=== PATIENT | male | born 2000 | race Caucasian/White ===

== ENCOUNTER 2024-05-02 14:31 | Emergency (ER) | payer OTHER, SELFPAY ==
[2024-05-02 14:48] VITALS: BP 124/80; PULSE 99; RESP 20; TEMP 36.7; O2SAT 99
--- NOTE | 2024-05-02 17:47 | ED.UPPEXIN ---
HPI - Extremity Injury (Upper) General Chief Complaint: Extremity Injury, Upper Stated Complaint: HAND INJURY Time Seen by Provider: 05/02/24 17:43 Source: patient, family (father), RN notes reviewed and other (spoke with provider) Mode of arrival: ambulatory Limitations: no limitations History of Present Illness HPI narrative: [id number] male presents with swelling and pain in his 2nd digit of his right hand. Patient had sustained a laceration to the base of his 5th digit on this hand and on the same day had slammed his hand between 2 hard objects. Patient works as a [employer] operator. He had initially presented to urgent care and had a negative x-ray. Patient has continued to have pain and swelling which has alternated on the digits but has seemed to settle into the 2nd digit over the past day or so. His last dose of ibuprofen 800 mg was at 6:30 a.m. this morning. He cannot recall his last tetanus shot in believes it is probably been greater than 10 years. It was not updated at the Urgent Care this morning where Xray was again performed and reported as negative though no images in EMR and patient does not have documentation with him. Spoke with ROMEO at prior to patient's arrival for provider report. She expressed strong concern for flexor tenosynovitis. Related Data Allergies Allergy/AdvReac Type Severity Reaction Status Date / Time No Known Allergies Allergy Unknown Verified 05/02/24 14:48 [facility] Past Medical History Medical History Right hand dominant Social History Social History Occupation/Education: occupation Additional occupation/education comments: Employed as a [employer] operator since approximately 2019 Exam Narrative: GENERAL: Well-appearing, well-nourished, and in no acute distress. HEAD: Normocephalic, atraumatic. EYES: Non injected, non icteric ENT: Nares clear, no rhinorrhea or epistaxis. NECK: Supple. CHEST: Speaking in full sentences. No respiratory distress. HEART: Regular rate and rhythm. ABDOMEN: Soft, nondistended. EXTREMITIES: Limited ROM (can not perform full flexion) of 2nd digit R hand. Edema, fusiform appearance of digit. Also erythema and edema along dorsum of hand and overlying 2nd knuckle. No pain with passive extension of the digit but patient does experience pain with active extension of the digit. No pain to percussion along the flexor surface. SKIN: Warm, dry, no rash. NEURO: No focal deficits. Alert and oriented x3. PSYCH: Normal mood and affect. Course Vital Signs Vital signs: Vital Signs Temperature 98.0 F 05/02/24 14:48 Pulse Rate 99 05/02/24 14:48 Respiratory Rate 20 05/02/24 14:48 Blood Pressure 124/80 05/02/24 14:48 Pulse Oximetry 99 05/02/24 14:48 Oxygen Delivery Room Air 05/02/24 14:48 Temperature 98.2 F 05/02/24 19:58 Pulse Rate 80 05/02/24 19:58 Respiratory Rate 18 05/02/24 19:58 Blood Pressure 130/62 05/02/24 19:58 Pulse Oximetry 99 05/02/24 19:58 Oxygen Delivery Room Air 05/02/24 14:48 MDM - Extremity Injury (Upper) MDM Narrative Medical decision making narrative: Patient presents from with concern for flexor tenosynovitis. In the emergency department they are afebrile with vital signs within normal limits. Kan[place] signs for flexor sheath infection (flexor tenosynovitis) Finger held in slight flexion: Yes Fusiform swelling of affected digit: Yes Tenderness along flexor tendon sheath: No, more so along extensor mechanism. Pain with passive extension of digit: No (only with active extension) Thus, equivocal for FTS and swelling/erythema is primarly along extensor surface and into dorsum of hand which appears cellulitic. BEDSIDE POINT OF CARE ULTRASOUND PROCEDURE POCUS is performed which does demonstrate some edema/cobblestoning along extensor surface with scant fluid collection but no abilio
[2024-05-02] MEDS: TETANUS,DIPHTHERIA,AC PERTUSSIS ADULT (0.5 ML) BOOSTRIX IM (18:05)
[2024-05-02 18:19] LABS: Basophils Percent Auto 0.3 % (0.2-1.2); Eosinophils Absolute Auto 0.1 K/mm3 (0-0.3); Eosinophils Percent Auto 0.7 % (0-4.4); Hematocrit 44.1 % (42.0-52.0); Hemoglobin 15.1 g/dL (14.0-18.0); Immature Granulocyte Absolute 0.04 K/mm3 (0.00-0.031); Immature Granulocyte Percent A 0.4 % (0-0.5); Lymphocytes Absolute Auto 1.81 K/mm3 (0.9-3.2); Lymphocytes Percent Auto 18.4 % (18.3-44.2); Mean Corpuscular HGB Conc 34.2 g/dl (32-36); Mean Corpuscular Hemoglobin 30.4 pg (26-34); Mean Corpuscular Volume 88.9 fl (80-100); Mean Platelet Volume 9.5 fl (7.4-10.4); Monocytes Percent Auto 10.4 % (2.6-8.5); Neutrophils Absolute Auto 6.9 K/mm3 (1.3-6.7); Neutrophils Percent Auto 69.8 % (45.5-73.1); Platelet Count Result 362 k/mm3 (150-375); Red Blood Count 4.96 M/mm3 (4.6-6.20); Red Cell Distribution Width 12.1 % (11.5-14.5); White Blood Count 9.8 K/mm3 (4.5-10.0)
[2024-05-02] MEDS: HYDROcodone/acetaminophen (*CRX) 5-325 MG TABLET 1 TAB PO (18:26)
[2024-05-02 18:29] LABS: Alanine Aminotransferase 39 U/L (6-50); Albumin Level 4.7 g/dL (3.5-5.1); Alkaline Phosphatase 137 U/L (38-126); Anion Gap 14 mmol/L (4-12); Aspartate Amino Transferase 32 U/L (17-59); Bilirubin,Total 0.8 mg/dL (0.2-1.3); Blood Urea Nitrogen 12 mg/dL (9-20); Calcium 9.5 mg/dL (8.4-10.2); Carbon Dioxide 23 mmol/L (22-30); Chloride 102 mmol/L (98-107); Estimated CRCL calculation 158 ml/min; Estimated Glomerular Filt Rate > 60; Glucose 88 mg/dL (65-110); Potassium 3.8 mmol/L (3.4-5.0); Sodium 139 mmol/L (137-145)
[2024-05-02 19:11] LABS: Erythrocyte Sedimentation Rate 17 mm/hr (0-20)
[2024-05-02 19:12] LABS: CRP 1.4 mg/dL (<1.0)
[2024-05-02] MEDS: SULFAMETHOXAZOLE/TRIMETHOPRIM 800/160 MG DS TABLET 1 TAB PO (19:55)
[2024-05-02] MEDS: CEPHALEXIN 500 MG CAPSULE PO (19:55)
[2024-05-02 19:58] VITALS: BP 130/62; PULSE 80; RESP 18; TEMP 36.8; O2SAT 99
== END 2024-05-02 19:59 | disposition home or self-care (01) ==
PROVIDERS: Emergency Provider Student in an Organized Health Care Education/Training Program
DX: L03.113 Cellulitis of right upper limb (principal); Z23 Encounter for immunization; R79.82 Elevated C-reactive protein (CRP); R74.8 Abnormal levels of other serum enzymes
CPT/HCPCS: 36415; 80053; 85025; 85652; 86140; 90471; 90715; 99283; A9270